=== PATIENT | female | born 1960 | race Caucasian/White ===

== ENCOUNTER → 2018-08-06 09:39 | Outpatient (CLI) | payer BC | END | disposition home or self-care (01) | LOC: D.SP 09:39 | PROVIDERS: ATTEND Orthopaedic Surgery | DX: M25.551 Pain in right hip (principal) ==

== ENCOUNTER → 2018-08-06 10:01 | Outpatient (CLI) | payer BC ==
--- NOTE | ~2018-08-06 | HEMODYNAMI ---
PATIENT:MADIHA HOWE MEDICAL RECORD: [id number] : 62 LOCATION:D.MRI ADMISSION DATE: 08/06/18 Generatedon:08/06/201811:59 Patient name: MADIHA HOWE Patient #: [id number] SSN: : 1960 Date of study: 08/06/2018 Page: Of Hemodynamic Procedure Report Patient Data Patient Demographics Procedure consent was obtained First Name: MADIHA Gender: Female Last Name: SHYAM : 1960 Patient #: [id number] Age: 57 year(s) Race: Unknown Additional ID: [id number] Contact details Address: [address] [place] [address] [facility] State: [place] City: [place] Zip code: [address] Past Medical History Allergies: No known allergies Admission Admission Data Admission Date: 08/06/2018 Admission Time: 10:01 Procedure Procedure Types Cath Procedure Peripheral Cath Diagnostic Procedure Miscellaneous Aspiration/Injection (Joint) Procedure Description Procedure Date Procedure Date: 08/06/2018 Procedure Start Time: 11:48 Procedure Staff Name Function Emre Caldwell MD Performing Physician SRAVANI WASHBURN RT Monitor Edyta Rogers RT Monitor Procedure Data Cath Procedure Fluoroscopy Diagnostic fluoroscopy Total fluoroscopy Time: 0.4 time: 0.4 min min Diagnostic fluoroscopy Total fluoroscopy dose: 3 dose: 3 mGy mGy Contrast Material Contrast Material Type Amount (ml) Isovue 370 5 Hemodynamics Rest Pre Cath Intra NCS Post Cath Procedure Log Time Note 11:38:46 Edyta Rogers RT (R) sent for patient. Start room use. 11:38:48 Time tracking: Regular hours (M-F 7:00 - 5:00) 11:38:56 Patient received from Outpatients to IR Alert and oriented. Tansferred to table in Supine position. 11:39:20 Signed procedure consent form obtained from patient. 11:39:21 - 11:39:43 Patient allergic to No known allergies 11:39:56 Is patient on blood thinner?No 11:40:57 - 11:41:59 Right Hip was prepped with betadine and draped in sterile fashion. 11:46:09 Physician arrived 11:46:33 --------ALL STOP TIME OUT------ 11:47:02 SAFE-T PLUS MYELOGRAM TRAY opened to sterile field. 11:47:59 Procedure started. 11:47:59 Full Disclosure recording started 11:48:55 Local anesthetic to Right Hip with Lidocaine 1% by Emre Caldwell MD.INITIAL ACCESS ONLY 11:55:13 Procedure ended.(Physican Out) 11:55:23 Fluoroscopy time 00.40 minutes. 11:55:34 Fluoroscopy dose: 3 mGy 11:55:34 Flurop Dose total: 3 11:56:18 Contrast amount: Isovue 200M 5ml. 11:57:26 Post procedure instruction explained to patient.Patient verbalizes understanding. 11:57:39 Post Right Hip:stable. Band aide applied and patient sent home 11:58:06 End room use (Document Last) Device Usage Item Name Manufacture Quantity Catalog Hospital Part Current Minimal Lot# / Number Charge Number Stock Stock Serial# Code SAFE-T [employer] 1 [id number] PLUS MYELOGRAM TRAY Signature Audit [place] Stage Time Signature Unsigned Intra-Procedure 08/06/2018 SRAVANI WASHBURN RT 11:59:06 AM (R) Signatures Monitor : SRAVANI WASHBURN RT Signature : Date : Time : Monitor : Edyta Rogers RT Signature : Date : Time : [place] [id number] [facility] [place] [address]
== END | disposition home or self-care (01) ==
LOC: D.MRI 10:01
PROVIDERS: ATTEND Orthopaedic Surgery
DX: M54.16 Radiculopathy, lumbar region (principal)

== ENCOUNTER → 2018-10-29 13:55 | Outpatient (CLI) | payer BC | END | disposition home or self-care (01) | LOC: D.LABREF 13:55 | PROVIDERS: ATTEND Orthopaedic Surgery | DX: M16.11 Unilateral primary osteoarthritis, right hip (principal) ==

== ENCOUNTER 2018-11-02 12:45 | Inpatient (IN) | payer BC ==
[~2018-11-02] VITALS: Ht 152.4 cm; Wt 85.9 kg
[2019-01-01] MEDS ORDERED: SYNTHROID75 MCG PO (13:27)
[2019-01-01] MEDS ORDERED: ZOLOFT50 MG PO (13:34)
[2019-01-01] MEDS ORDERED: ACCURETIC PO (13:35)
[2019-01-02 12:08] LABS: BASOPHILS 0.3 % (0-2); HEMATOCRIT 44.3 % (36.0-48.0); HEMOGLOBIN 15.3 g/dL (12-16); IMMATURE GRANULOCYTES 0.3 % (0-5); LYMPHOCYTES 39.7 % (15-50); MCH 32.5 pg (26.0-34.0); MCHC 34.5 g/dL (31.0-37.0); MCV 94.1 fL (80.0-100.0); MEAN PLATELET VOLUME 9.7 fL (7.4-10.4); MONOCYTES 8.6 % (2-11); NEUTROPHILS 49.1 % (40-80); PLATELET COUNT 186 10x3/uL (130-400); RBC 4.71 10x6/uL (4.00-5.40); RDW 13.5 % (11.5-14.5); WBC 11.5 10x3/uL (4.8-10.8)
[2019-01-02 12:26] LABS: CALC OSMOLALITY 275 mosm/kg (275-300); CALCIUM 8.7 mg/dL (8.5-10.1); CARBON DIOXIDE 27.1 mmol/L (21.0-32.0); CHLORIDE - SERUM 102 mmol/L (98-107); CREATININE - SERUM 0.5 mg/dL (0.6-1.3); GLUCOSE 88 mg/dL (74-106); SODIUM 139 mmol/L (136-145); UREA NITROGEN 9 mg/dL (7-18); eGFR NON AFRICAN AMERICAN > 90 mL/min (90-120)
[2019-01-02 12:48] LABS: APTT 28.9 SECONDS (22.8-39.4)
[2019-01-02 13:09] LABS: APPEARANCE CLEAR (CLEAR); BILIRUBIN NEGATIVE (NEGATIVE); COLOR YELLOW (YELLOW); GLUCOSE NEGATIVE (NEGATIVE); KETONE NEGATIVE (NEGATIVE); NITRITE NEGATIVE (NEGATIVE); PROTEIN NEGATIVE (NEGATIVE)
[2019-01-02 13:10] LABS: BACTERIA FEW /hpf (NEGATIVE); EPITHELIAL CELLS 0-5 /hpf (0-5); MUCUS <1+ /lpf (NONE SEEN); RED CELLS - URINE 0-5 /hpf (0-5); WHITE CELLS - URINE RARE /hpf (NEGATIVE)
[2019-01-02 13:13] LABS: INR 1.05 (0.85-1.17); PROTIME 13.2 SECONDS (11.6-15.0)
[2019-01-08] VITALS (9 sets, daily range): BP systolic 89–122; BP diastolic 41–74; Ht 152.4 cm; Wt 85.9 kg
--- NOTE | 2019-01-08 08:24 | NUR ---
PLASMA BLADE SET TO 6/8 BOVIE PAD LEFT THIGH [id number] EXP 09/13/20 PREPPED WITH HIBICLENS AND ALOCHOL THEN DRIED WITH TOWEL. PREPPED WITH CHLORAPREP FROM ILIAC CREST TO HANA BOOT CICUMFERENTIALLY. STERILE GOWN AND GLOVES WORN DURING PREP. TRAFFIC MONITORED IN AND OUT OF THE ROOM AND KEPT TO A MINIMUM. TOBRAMYCIN AND VANCOMYCIN PACKED IN WOUND BED.
--- NOTE | 2019-01-08 19:30 | NUR ---
RECEIVED IN REPORT OF LOW TRENDING BP. PT IS A&O X 4, REPORTS LOW PAIN LEVEL AT THIS TIME, BUT ANTICIPATES SHE WILL NEED PAIN MEDICATION IN, "AN HOUR OR SO." WOUND VAC PRESENT ON RIGHT HIP, NO DRAINAGE SEEN. SITE IS C/D/I. WILL MONITOR CLOSELY.
--- NOTE | 2019-01-08 20:25 | NUR ---
A&O X 4. NO VISIBLE S/SX OF DISTRESS. MANUAL BP 78/38. PULSE 54BPM. DENIES LIGHTHEADEDNESS/DIZZINESS. HARRY SIBLEY NOTIFIED. STAT CBC ENTERED PER TELEPHONE ORDER, LAB CALLED AND NOTIFIED. SALINE BOLUS STARTED PER TELEPHONE ORDER. WILL MONITOR CLOSELY.
--- NOTE | 2019-01-08 21:15 | NUR ---
LAB CALLED TO INQUIRE ABOUT STAT CBC ORDERED AT 2022. LAB STATED THAT ONLY ONE PLEBOTOMIST WAS ON THE FLOOR, AND THE EMERGENCY ROOM WAS BUSY AND COMES FIRST. CALLED SHERRIE AND INFORMED HIM OF DELAY ON CBC LABS WITH CONTINUED HYPOTENSION. 500CC SALINE BOLUS GIVEN PER TELEPHONE ORDER.ALSO ENTERED ICU TRANSFER ORDER PER SHERRIE. POWER ELECTRONICS RESEARCH ENGINEER, DR. DINH, AND PT NOTIFIED OF PENDING TRANSFER. WILL CONTINUE TO MONITOR.
[2019-01-08 21:40] LABS: BASOPHILS 0 % (0-2); EOSINOPHILS 0 % (0-7); HEMATOCRIT 33.8 % (36.0-48.0); IMMATURE GRANULOCYTES 0.3 % (0-5); MCH 30.7 pg (26.0-34.0); MCHC 32.5 g/dL (31.0-37.0); MCV 94.4 fL (80.0-100.0); MEAN PLATELET VOLUME 9.5 fL (7.4-10.4); MONOCYTES 10.3 % (2-11); NEUTROPHILS 75.4 % (40-80); RBC 3.58 10x6/uL (4.00-5.40); RDW 13.4 % (11.5-14.5); WBC 11.7 10x3/uL (4.8-10.8)
[2019-01-08 21:48] LABS: PLATELET COUNT 132 10x3/uL (130-400)
--- NOTE | 2019-01-08 22:15 | NUR ---
PT ARRIVED TO UNIT WITH MED SURG STAFF. SHE IS A&O X4. MOVED OVER TO ICU BED X4 ASSIST. STATES THAT SHE IS HAVING 7/10 PAIN IN HER R HIP AND LEG, SHE DESCRIBES IT PRESSURE. REPOSITIONED FOR COMFORT. RR EVEN AND UNLABORED, CLEAR BREATH SOUNDS HEARD, DIMINISHED AT THE BASES. S1S2 AUDIBLE, HR 56 SINUS MARILIA SHOWING ON MONITOR. NIBP 90/55, TIGHT PARAMETERS SET ON ICU MONITORS. L FA PIV INFUSING 1/2 NS @ 50 ML/HR. ABD SOFT AND NONTENDER TO TOUCH, BS ACTIVE X4. 400 ML VOID VIA BED COKER, CLEAR YELLOW URINE. R HIP WOUND VAC IN PLACE, 150 MMHG, NO AIR LEAK DETECTED, CDI. SWELLING AND STIFFNESS NOTED TO R LEG. RADIAL AND PEDAL PULSES PALP. VSS. CALL LIGHT IN REACH, ENCOURAGED IS USE. NO FURTHER NEEDS AT THIS TIME. WILL CONT TO MONITOR CLOSELY.
--- NOTE | 2019-01-08 23:22 | NUR ---
PRN PAIN MEDS ADMIN FOR 7/10 PAIN IN HER HIP/LEG. SHE STATES THAT IT FEELS LIKE A LOT OF PRESSURE. SEE EMAR FOR FURTHER DETAILS. ICE PACK APPLIED TO AFFECTED AREA ALSO. PAGING SHERRIE CURRANN FOR DECREASE IN BP.
--- NOTE | 2019-01-08 23:45 | NUR ---
SPOKE WITH SHERRIE SIBLEY APN R/T HYPOTENSION. 500CC NS BOLUS X1. AFTER BOLUS CHANGE IVF TO NS @ 75 ML/HR. WILL INITIATE.
[2019-01-09] VITALS (30 sets, daily range): BP systolic 85–124; BP diastolic 45–73
--- NOTE | 2019-01-09 00:13 | NUR ---
SPOKE WITH SHERRIE SIBLEY APN. NEW ORDERS RECIEVED. INITATING LEVOPHED, SEE IV GTT FLOWSHEET FOR FURTHER DETAILS. WILL CONT TO MONITOR.
--- NOTE | 2019-01-09 01:00 | NUR ---
PT ON BED COKER, 400 ML CLEAR YELLOW VOID. PT TOLERATED LIFTING BUTTOCKS UP WELL. CALL LIGHT IN REACH, BED IN LOWEST POSITION. WILL CONT TO TITRATE LEVOPHED GTT PER IV GTT FLOWSHEET.
--- NOTE | 2019-01-09 03:00 | NUR ---
ASSESSMENT COMPLETE. DECREASED LEVOPHED TO 2 MCG/MIN, SEE IV FLOWSHEET FOR FURTHER DETAILS. PT VOID 350 ML CLEAR YELLOW URINE. REPOSITIONED FOR COMFORT. NO FURTHER CHANGES IN PT CONDITION. CALL LIGHT IN REACH, BED IN LOWEST POSITION. WILL CONT TO MONITOR CLOSELY.
[2019-01-09 04:20] LABS: HEMATOCRIT 33.5 % (36.0-48.0); HEMOGLOBIN 11.1 g/dL (12-16); MCH 31.1 pg (26.0-34.0); MCHC 33.1 g/dL (31.0-37.0); MCV 93.8 fL (80.0-100.0); MEAN PLATELET VOLUME 9.2 fL (7.4-10.4); PLATELET COUNT 160 10x3/uL (130-400); RBC 3.57 10x6/uL (4.00-5.40); RDW 13.4 % (11.5-14.5)
[2019-01-09 04:28] LABS: CALC OSMOLALITY 280 mosm/kg (275-300); CALCIUM 7.5 mg/dL (8.5-10.1); CARBON DIOXIDE 25.5 mmol/L (21.0-32.0); CHLORIDE - SERUM 109 mmol/L (98-107); CREATININE - SERUM 0.6 mg/dL (0.6-1.3); POTASSIUM - SERUM 4.2 mmol/L (3.5-5.1); SODIUM 141 mmol/L (136-145); UREA NITROGEN 8 mg/dL (7-18); eGFR NON AFRICAN AMERICAN > 90 mL/min (90-120)
[2019-01-09 04:30] LABS: GLUCOSE 140 mg/dL (74-106)
[2019-01-09 04:46] LABS: LYMPHOCYTES 19 % (15-50); MONOCYTES 5 % (2-11); NEUTROPHILS 75 % (40-80)
[2019-01-09 04:47] LABS: PLATELET ESTIMATE DECREASED
--- NOTE | 2019-01-09 05:00 | NUR ---
PT VOID 200 ML CLEAR YELLOW URINE. REPOSITIONED FOR COMFORT. REFRESHMENTS BROUGHT TO BEDSIDE. VSS. LEVOPHED TITRATED OFF. SEE IV GTT FLOWSHEET FOR FURTHER DETAILS.
--- NOTE | 2019-01-09 07:15 | NUR ---
REPORT RECIEVED, SHIFT ASSESSMENT COMPLETE, PT IS ALERT AND ORIENTED, ON 2L NC WITH 97% O2 SAT. ALL PPP, VSS, CALL LIGHT IN REACH
--- NOTE | 2019-01-09 07:30 | NUR ---
ALLEGRA BALBUENA AT BEDSIDE, UPDATE GIVEN, NEW ORDERS RECIEVED,
--- NOTE | 2019-01-09 09:40 | NUR ---
REPORT CALLED TO MED SURG,
--- NOTE | 2019-01-09 11:19 | NUR ---
1010 PT ARRIVES TO UNIT FROM ICU PER BED, WOUND VAC TO RIGHT HIP, AT BEDSIDE, IV INFUSING
--- NOTE | 2019-01-09 15:38 | NUR ---
WALKED TO BR WITH 1 ASSIST AND WALKER, ARIEL WELL
[2019-01-10 00:11] LABS: APPEARANCE CLEAR (CLEAR); BILIRUBIN NEGATIVE (NEGATIVE); COLOR YELLOW (YELLOW); GLUCOSE NEGATIVE (NEGATIVE); KETONE NEGATIVE (NEGATIVE); NITRITE NEGATIVE (NEGATIVE); PROTEIN NEGATIVE (NEGATIVE); SPECIFIC GRAVITY 1.015 (1.005-1.020); UROBILINOGEN NORMAL (NORMAL)
[2019-01-10 01:47] VITALS: BP 121/62
[2019-01-10 06:22] VITALS: BP 106/51
[2019-01-10 06:37] LABS: BASOPHILS 0.3 % (0-2); EOSINOPHILS 1.1 % (0-7); HEMATOCRIT 31.3 % (36.0-48.0); HEMOGLOBIN 10.2 g/dL (12-16); IMMATURE GRANULOCYTES 0.4 % (0-5); LYMPHOCYTES 27.9 % (15-50); MCH 31.1 pg (26.0-34.0); MCHC 32.6 g/dL (31.0-37.0); MCV 95.4 fL (80.0-100.0); MEAN PLATELET VOLUME 9.7 fL (7.4-10.4); MONOCYTES 14.1 % (2-11); NEUTROPHILS 56.2 % (40-80); RBC 3.28 10x6/uL (4.00-5.40); RDW 13.8 % (11.5-14.5)
[2019-01-10 06:40] LABS: PLATELET COUNT 109 10x3/uL (130-400); WBC 11.6 10x3/uL (4.8-10.8)
[2019-01-10 07:02] LABS: CALC OSMOLALITY 279 mosm/kg (275-300); CALCIUM 7.4 mg/dL (8.5-10.1); CARBON DIOXIDE 24.5 mmol/L (21.0-32.0); CHLORIDE - SERUM 111 mmol/L (98-107); CREATININE - SERUM 0.6 mg/dL (0.6-1.3); GLUCOSE 88 mg/dL (74-106); POTASSIUM - SERUM 3.4 mmol/L (3.5-5.1); SODIUM 142 mmol/L (136-145); UREA NITROGEN 8 mg/dL (7-18); eGFR NON AFRICAN AMERICAN > 90 mL/min (90-120)
--- NOTE | 2019-01-10 07:15 | NUR ---
REC'D IN BED AWAKE AND ALERT. RESP EVEN AND UNLABORED WITH NO DISTRESS NOTED. CAN EXPRESS NEEDS AND WANTS. NO C/O NOTED OR VOICED. ASSESSMENT COMPLETED. C/L IN REACH AT BEDSIDE.
[2019-01-10] MEDS ORDERED: OXYCODONE HCL5 M1 PO (08:32)
[2019-01-10] MEDS ORDERED: VISTARIL50 MG PO (08:32)
[2019-01-10] MEDS ORDERED: KEFLEX500 MG PO (08:33)
[2019-01-10] MEDS ORDERED: BAYER CHEWABLE81 MG PO (08:33)
[2019-01-10 08:42] VITALS: BP 115/60
--- NOTE | 2019-01-10 09:21 | MORECARE ---
CASE MANAGEMENT DISCHARGE SUMMARY PATIENT: KM FORDE UNIT: [id number] ADM DATE: 01/08/19 AGE: 58 : 62 SEX: F ROOM/BED: D.2240 AUTHOR: RICARDA PEREZ PHYSICIAN: REFERRING PHYSICIAN: BERNIE DINH DO DATE OF SERVICE: 01/10/19 Discharge Plan Patient Name: KM FORDE Facility: [facility]:[place] : 1960 Planned Disposition: Home with Home Health Anticipated Discharge Date: 01/10/19 Discharge Date: Expected LOS: 2 Initial Reviewer: [email or web address] Initial Review Date: 01/10/2019 Generated: 01/10/19 10:21 am DCPIA - Discharge Planning Initial Assessment Updated by [email or web address]: Inez Rutherford on 01/10/19 9:18 am * Is the patient Alert and Oriented? Yes * How many steps to enter\exit or inside your home? 3-4/0 * PCP Enma Elias * [facility] [address] * Preadmission Environment Home with Family * ADLs Independent * Equipment Cane Shower Chair Walker * List name and contact numbers for known caregivers / representatives who currently or will assist patient after discharge: Ney Forde - spouse - [phone] * Verbal permission to speak to the caregivers and representatives has been obtained from the patient. Yes * Community resources currently utilized None * Additional services required to return to the preadmission environment? Yes * Can the patient safely return to the preadmission environment? Yes * Has this patient been hospitalized within the prior 30 days at any hospital? No External [facility]iders [facility] Next Contact Date: Service Request Date: Service Type: Resolution: Reviewer: Comments: Patient Name: KM FORDE Page [phone] at 0921 All edits/amendments must be made on the electronic document DICTATION DATE: 01/10/19919 DIRECT CARE SPECIALIST: RICH 01/10/19919 RPT#: [id number] DC DATE: STATUS: ADM IN [facility] [address] [place] [address] END OF REPORT
--- NOTE | 2019-01-10 09:28 | MORECARE ---
CASE MANAGEMENT DISCHARGE SUMMARY PATIENT: KM FORDE UNIT: [id number] ADM DATE: 01/08/19 AGE: 58 : 62 SEX: F ROOM/BED: D.2240 AUTHOR: RICARDA PEREZ PHYSICIAN: REFERRING PHYSICIAN: BERNIE DINH DO DATE OF SERVICE: 01/10/19 Discharge Plan Patient Name: KM FORDE Facility: [facility]:[place] : 1960 Planned Disposition: Home with Home Health Anticipated Discharge Date: 01/10/19 Discharge Date: Expected LOS: 2 Initial Reviewer: [email or web address] Initial Review Date: 01/10/2019 Generated: 01/10/19 10:28 am Comments DCP- Discharge Planning Updated by [email or web address]: Inez Rutherford on 01/10/19 8:[address] Patient Name: KM FORDE Admission Status: Elective Accout number: [id number] Admission Date: 01-08-2019 : 1960 Admission Diagnosis: Attending: BERNIE DINH Current LOS: 2 Anticipated DC Date: 01-10-2019 Planned Disposition: Home with Home Health Primary Insurance: [employer] Discharge Planning Comments: CM met with patient to complete initial dc planning assessment. CM educated patient on the CM role and verbal consent given by patient to complete assessment. Patient lives at home with her . At discharge patient plans to return and feels this is a safe discharge. CM discussed availability of home health, rehab services, and medical equipment. Patient states her will be returning to work on Monday and she will have no ride for outpatient PT. She states that she was suggested to use home health and OBEY signed for [facility]. She states that she wants to make sure her insurance will cover home health. I called Candi and informed her and clinical faxed to [facility]. I also notified Ray with [facility]. She denies need for further DME. CM will continue to follow and will assist as needed with dc plans/needs. Fruit Farmer: Inez Rutherford DCPIA - Discharge Planning Initial Assessment Updated by [email or web address]: Inez Rutherford on 01/10/19 9:18 am * Is the patient Alert and Oriented? Yes * How many steps to enter\exit or inside your home? 3-4/0 * PCP Enma Elias * [facility] [address] * Preadmission Environment Home with Family * ADLs Independent * Equipment Cane Shower Chair Walker * List name and contact numbers for known caregivers / representatives who currently or will assist patient after discharge: Ney Forde - spouse - [phone] * Verbal permission to speak to the caregivers and representatives has been obtained from the patient. Yes * Community resources currently utilized None * Additional services required to return to the preadmission environment? Yes * Can the patient safely return to the preadmission environment? Yes * Has this patient been hospitalized within the prior 30 days at any hospital? No Coverage Notice Reviewer: [email or web address] Jeannie Rutherford Notice Issued Date-Time: 01/10/2019 9:23 Notice Type: Patient Choice Letter Notice Delivered To: Patient Relationship to Patient: Self Student Worker Name: Delivery Method: HAND - Hand Delivered Areli Days: Prior Verbal Notification: Recipient Understood Notice: Yes Recipient Signature: Yes Med Rec Note Co-signed by Attending: Coverage Notice Comment: OBEY for [facility] Last DP export: 01/10/19 8:21 Patient Name: KM FORDE Page [phone] at 0928 All edits/amendments must be made on the electronic document DICTATION DATE: 01/10/19926 SPA COORDINATOR: RICH 01/10/19926 RPT#: [id number] DC DATE: STATUS: ADM IN [facility] [address] [place] [address] END OF REPORT
--- NOTE | 2019-01-10 11:51 | MORECARE ---
CASE MANAGEMENT DISCHARGE SUMMARY PATIENT: KM FORDE UNIT: [id number] ADM DATE: 01/08/19 AGE: 58 : 62 SEX: F ROOM/BED: D.2240 AUTHOR: CHRIS,DOC PHYSICIAN: REFERRING PHYSICIAN: BERNIE DINH DO DATE OF SERVICE: 01/10/19 Discharge Plan Patient Name: KM FORDE Facility: [facility]:[place] : 1960 Planned Disposition: Home with Home Health Anticipated Discharge Date: 01/10/19 Discharge Date: Expected LOS: 2 Initial Reviewer: [email or web address] Initial Review Date: 01/10/2019 Generated: 01/10/19 12:51 pm Comments DCP- Discharge Planning Updated by [email or web address]: Inez Rutherford on 01/10/19 10:[address] [facility] returned call and they will accept the patient. She will have a 35-45 dollar copay. I have informed the patient and she agrees to discharge plan. Home today with home health. DCP- Discharge Planning Updated by [email or web address]: Inez Rutherford on 01/10/19 8:[address] Patient Name: KM FORDE Admission Status: Elective Accout number: [id number] Admission Date: 01-08-2019 : 1960 Admission Diagnosis: Attending: BERNIE DINH Current LOS: 2 Anticipated DC Date: 01-10-2019 Planned Disposition: Home with Home Health Primary Insurance[place] [facility] [place]charge Planning Comments: CM met with patient to complete initial dc planning assessment. CM educated patient on the CM role and verbal consent given by patient to complete assessment. Patient lives at home with her . At discharge patient plans to return and feels this is a safe discharge. CM discussed availability of home health, rehab services, and medical equipment. Patient states her will be returning to work on Monday and she will have no ride for outpatient PT. She states that she was suggested to use home health and OBEY signed for [facility]. She states that she wants to make sure her insurance will cover home health. I called Candi and informed her and clinical faxed to [facility]. I also notified Ray with [facility]. She denies need for further DME. CM will continue to follow and will assist as needed with dc plans/needs. [employer] Membership Advisors: Inez Krish DCPIA - Discharge Planning Initial Assessment Updated by [email or web address]: Inez Rutherford on 01/10/19 9:18 am * Is the patient Alert and Oriented? Yes * How many steps to enter\exit or inside your home? 3-4/0 * PCP Enma Elias * [facility] [address] * Preadmission Environment Home with Family * ADLs Independent * Equipment Cane Shower Chair Walker * List name and contact numbers for known caregivers / representatives who currently or will assist patient after discharge: Ney Forde - spouse - [phone] * Verbal permission to speak to the caregivers and representatives has been obtained from the patient. Yes * Community resources currently utilized None * Additional services required to return to the preadmission environment? Yes * Can the patient safely return to the preadmission environment? Yes * Has this patient been hospitalized within the prior 30 days at any hospital? No Coverage Notice Reviewer: [id number] - Inez Rutherford Notice Issued Date-Time: 01/10/2019 9:23 Notice Type: Patient Choice Letter Notice Delivered To: Patient Relationship to Patient: Self Vice President Client Services Name: Delivery Method: HAND - Hand Delivered Areli Days: Prior Verbal Notification: Recipient Understood Notice: Yes Recipient Signature: Yes Med Rec Note Co-signed by Attending: Coverage Notice Comment: O[facility] for [facility] Last DP export: 01/10/19 8:28 Patient Name: KM FORDE Page [phone] at 1151 All edits/amendments must be made on the electronic document DICTATION DATE: 01/10/19 1151 ELEMENTARY TEACHER: RICH 01/10/19 1151 RPT#: [id number] DC DATE: STATUS: ADM IN [facility] [address] [place] [address] END OF REPORT
--- NOTE | 2019-01-10 12:18 | NUR ---
DC HOME AT THIS TIME VOICE UNDERSTANDING OF DC ORDERS. IV DC WITH TIP INTACT. PREVENA WOUND VAC WAS PLACED. C/L IN REAC AT BEDSIDE.
--- NOTE | 2019-01-11 15:57 | MORECARE ---
CASE MANAGEMENT DISCHARGE SUMMARY PATIENT: KM FORDE UNIT: [id number] ADM DATE: 01/08/19 AGE: 58 : 62 SEX: F ROOM/BED: D.2240 AUTHOR: RICARDA PEREZ PHYSICIAN: REFERRING PHYSICIAN: BERNIE DINH DO DATE OF SERVICE: 01/11/19 Discharge Plan Patient Name: KM FORDE Facility: [facility]:[place] : 1960 Planned Disposition: Home with Home Health Anticipated Discharge Date: 01/10/19 Discharge Date: 01/10/2019 Expected LOS: 2 Initial Reviewer: [email or web address] Initial Review Date: 01/10/2019 Generated: 01/11/19 4:57 pm DCP- Discharge Planning Updated by [email or web address]: Inez Rutherford on 01/10/19 10:[address] [facility] returned call and they will accept the patient. She will have a 35-45 dollar copay. I have informed the patient and she agrees to discharge plan. Home today with home health. DCP- Discharge Planning Updated by [email or web address]: Inez Rutherford on 01/10/19 8:[address] Patient Name: KM FORDE Admission Status: Elective Accout number: [id number] Admission Date: 01-08-2019 : 1960 Admission Diagnosis: Attending: BERNIE DINH Current LOS: 2 Anticipated DC Date: 01-10-2019 Planned Disposition: Home with Home Health Primary Insurance: [employer] Discharge Planning Comments: CM met with patient to complete initial dc planning assessment. CM educated patient on the CM role and verbal consent given by patient to complete assessment. Patient lives at home with her . At discharge patient plans to return and feels this is a safe discharge. CM discussed availability of home health, rehab services, and medical equipment. Patient states her will be returning to work on Monday and she will have no ride for outpatient PT. She states that she was suggested to use home health and OBEY signed for [facility]. She states that she wants to make sure her insurance will cover home health. I called Candi and informed her and clinical faxed to [facility]. I also notified Ray with [facility]. She denies need for further DME. CM will continue to follow and will assist as needed with dc plans/needs. Spa Therapist: Inez Rutherford DCPIA - Discharge Planning Initial Assessment Updated by [email or web address]: Inez Rutherford on 01/10/19 9:18 am * Is the patient Alert and Oriented? Yes * How many steps to enter\exit or inside your home? 3-4/0 * PCP Enma Elias * [facility] [address] * Preadmission Environment Home with Family * ADLs Independent * Equipment Cane Shower Chair Walker * List name and contact numbers for known caregivers / representatives who currently or will assist patient after discharge: Ney Forde - spouse - [phone] * Verbal permission to speak to the caregivers and representatives has been obtained from the patient. Yes * Community resources currently utilized None * Additional services required to return to the preadmission environment? Yes * Can the patient safely return to the preadmission environment? Yes * Has this patient been hospitalized within the prior 30 days at any hospital? No Coverage Notice Reviewer: [id number] - Inez Rutherford Notice Issued Date-Time: 01/10/2019 9:23 Notice Type: Patient Choice Letter Notice Delivered To: Patient Relationship to Patient: Self [place] Support Worker Name: Delivery Method: HAND - Hand Delivered Areli Days: Prior Verbal Notification: Recipient Understood Notice: Yes Recipient Signature: Yes Med Rec Note Co-signed by Attending: Coverage Notice Comment: OBE[facility] for [facility] Last DP export: 01/10/19 10:51 Patient Name: KM FORDE Page [phone] at 1557 All edits/amendments must be made on the electronic document DICTATION DATE: 01/11/19 1557 RESERVATIONIST: RICH 01/11/19 1557 RPT#: [id number] DC DATE:01/10/19 STATUS: DIS IN [facility] [address] [place] [address] END OF REPORT
--- NOTE | 2019-01-28 16:31 | OP ---
PATIENT NAME: KM FORDE MEDICAL RECORD: [id number] :62 LOCATION:[id number] ADMISSION DATE:01/08/19 SURGEON: EMRE DINH DO DATE OF OPERATION: 01/08/2019 PROCEDURE PERFORMED: Right total hip arthroplasty. PREOPERATIVE DIAGNOSIS: Right hip osteoarthritis. POSTOPERATIVE DIAGNOSIS: Right hip osteoarthritis. INDICATIONS: Ms. Forde is a 58-year-old female who has had right hip osteoarthritis for quite some time. She has tried injections and all manner of nonoperative treatment to no avail. She was tired of dealing with the pain and it affecting her activities of daily living. She is aware of the risks including infection, bleeding, damage to nerves and vessels, blood clots, need for further surgery, fracture, failure of implants and even and she signed the consent. SURGEON: Emre Dinh DO DESCRIPTION OF PROCEDURE: The patient was taken to the operative suite, after receiving a pain block in the preoperative area, she was given 2 grams Ancef prior to starting that block and 80 mg of gentamicin. She was then taken to the operative suite, laid in supine position, given general anesthetic and intubated. She was then positioned on the [place] table. The right hip was then prepped and draped in sterile fashion. A timeout was performed, everyone was in agreement as to the correct side, site, patient, and procedure. I reprepped the site and then it was covered with [place] sheet after drying for 3 minutes. The incision then began over the tensor fascia virgil. Careful dissection was made down to the tensor fasciae virgil muscle and the fascia was incised. The fascia was taken anterior to the muscle belly, posterior and the rectus interval was opened. The rectus was then taken medial to the tensor fascia virgil lateral. The ascending branch of the lateral femoral circumflex was then encountered. It was tied off and coagulated with Aquamantys, then cleared off the capsule. Hohmann was placed on either side of the neck and the capsule was then opened. Hohmann was placed inside the neck and then the neck cut was made. Once the neck cut was made, the head was removed. Labrum was removed from around the acetabulum so as the pulvinar and then began reaming first medializing and then up to a 48, had to medialize some more after that and then went back up to 48. The 48 cup was then impacted in and was in good position and impacted very well, not loose. It was checked with a Romana. The liner was then placed in and the femur was then exposed and a canal finder and cookie cutter was used and then broaching began with a 4 up to a 6. This was reduced with a -3 neck. It fit very well and had a good length compared to the left hip on x-ray. This was then removed and the whole area was irrigated and the implant was placed in, a 6 Taperloc stem with -3 neck and a dual mobility head. This was then reduced. X-rays were taken. This seemed to be in good position. No fractures were seen in the femur. The Betadine mixed with 500 mL and 17 fluid ounces of Betadine were placed in the wound and sat for 3 minutes. This was then irrigated out and the Henrik and vancomycin and tobramycin powder were placed in the wound. The tensor fascia virgil fascia was then closed with #1 Vicryl in first a [id number] and then a running locking stitch and then the skin was closed with 2-0 Vicryl in inverted interrupted fashion, 4-0 Monocryl ran in the skin by Stefano Fernandes APRN. Then, a Prevena Plus was placed on the patient. She was OPERATIVE REPORT [id number] SHYAMKM CRESENCIO awakened and taken to recovery in stable condition. Blood loss was approximately 200 mL. COMPLICATIONS: None. TRANSINT:[id number] Voice Confirmation ID: [id number] DOCUMENT ID: [id number] 01/28/2019 Edited for sathish Adair. EMRE DINH DO at 1631 CC: [id number] DICTATION DATE: 01/08/19928 RECRUITER MANAGER: 01/08/19 1047 DIS IN 01/10/19 [id number] [place] [address]
== END 2019-01-10 12:19 | disposition home health service (06) | DRG 470 ==
LOC: D.SDCHOLD 01-08 05:00 → D.MS 01-08 05:00 → D.SDCHOLD 01-08 07:00 → D.MS 01-08 10:07 → D.ICU 01-08 22:31 → D.MS 01-09 09:40
PROVIDERS: Family Medicine; Internal Medicine Nephrology; ADMIT Orthopaedic Surgery; ATTEND Orthopaedic Surgery
PROC: 0SR90J9 Replacement of Right Hip Joint with Synthetic Substitute, Cemented, Open Approach (ICD-10-PCS; principal; 2019-01-08 07:00)
DX: M16.11 Unilateral primary osteoarthritis, right hip (principal); E03.9 Hypothyroidism, unspecified; I10 Essential (primary) hypertension; K75.9 Inflammatory liver disease, unspecified; F41.8 Other specified anxiety disorders